=== PATIENT | female | born 1955 | race Caucasian/White ===

== ENCOUNTER 2019-05-11 14:34 | Emergency (ER) | payer MEDICARE, MEDICAID ==
[~2019-05-11] VITALS: Ht 160 cm; Wt 65.9 kg
[2019-05-11] MEDS ORDERED: PANT40TA3 (14:56)
[2019-05-11] MEDS ORDERED: AMIT150T (14:56)
[2019-05-11] MEDS ORDERED: POTA20TA15 (14:56)
[2019-05-11] MEDS ORDERED: ARIP15TA9 (14:56)
[2019-05-11] MEDS ORDERED: LEVO150T6 (14:56)
[2019-05-11] MEDS ORDERED: CARV12.53 (14:56)
[2019-05-11] MEDS ORDERED: FLUT1DIS26 (14:56)
[2019-05-11] MEDS ORDERED: CITA20TA9 (14:56)
[2019-05-11] MEDS ORDERED: PHEN100C11 (14:56)
[2019-05-11] MEDS ORDERED: IBUP-1780 (14:56)
[2019-05-11] MEDS ORDERED: BUSP15TA60 (14:56)
[2019-05-11] MEDS ORDERED: cefTRIAXone 500 MG/1.43 ML vial (IM ONLY) IM ONE (15:00)
[2019-05-11] MEDS ORDERED: TETANUS & DIPHTHERIA TOX,ADULT 0.5 ML (TENIVAC) IM ONE (15:00)
[2019-05-11] MEDS ORDERED: PENI500T PO (15:01)
--- NOTE | 2019-05-11 15:01 | ED Integumentary General ---
General Chief Complaint: Skin/Wound Problems Stated Complaint: SCRATCHED BY CAT - LT HAND SWOLLEN History of Present Illness Date Seen by Provider: May 11, 2019 Time Seen by Provider: 14:56 Initial Comments 64-year-old female she apparently has several cats all of which have been healthy and have been immunized 2 days ago she was doing something with one of them, and it sort of lashed out at her she's not sure if it's a scratch or bite she has a couple kasper on her dorsal left hand and wrist the next day she developed redness and swelling and now has more significant redness and swelling perhaps longterm up the dorsal left forearm nothing above the elbow no fever chills no nausea vomiting Allergies and Home Medications Allergies Coded Allergies: No Known Drug Allergies (Unverified , 05/11/19) Patient Home Medication List Home Medication List Reviewed: Yes Review of Systems Review of Systems Constitutional: no symptoms reported EENTM: no symptoms reported Respiratory: no symptoms reported Cardiovascular: no symptoms reported Gastrointestinal: no symptoms reported Physical Exam Vital Signs Capillary Refill : General Appearance: WD/WN HEENT: PERRL/EOMI Neck: supple Cardiovascular: regular rate, rhythm Respiratory: normal breath sounds Gastrointestinal: normal bowel sounds (left hand wrist and forearm are as described in history of present illness goes about longterm up the dorsal forearm she does not seem toxic nothing above the elbow) Progress/Results/Core Measures Results/Orders My Orders Orders - MARISA LEONG MD Ceftriaxone For Im Use (Rocephin For Im (05/11/19 15:00) Tetanus/Diphtheria Inj (Adult) (Tenivac (05/11/19 15:00) Departure Impression Primary Impression: Cellulitis Qualified Codes: L03.114 - Cellulitis of left upper limb Disposition: 01 HOME, SELF-CARE Condition: Stable Departure-Patient Inst. Referrals: SELFLOUIS MD (PCP/Family) Primary Care Physician Patient Instructions: Cellulitis (Skin Infection), Adult (DC) Scripts Penicillin V Potassium (Penicillin V Potassium) 500 Mg Tablet 500 MG PO QID, #28 TAB Prov: MARISA LEONG MD 05/11/19 MARISA LEONG MD May 11, 2019 15:01 POS
[2019-05-11] MEDS ORDERED: LIDOCAINE PF 1% 5 ML (XYLOCAINE) AMP ONE (15:04)
[2019-05-11] MEDS ORDERED: cefTRIAXone 1,000 MG/2.86 ml vial (IM ONLY) ONE (15:15)
[2019-05-11] MEDS ORDERED: LIDOCAINE 1% INJ 20 ML 20 ML VIAL INJ ONE (15:15)
[2019-05-11 15:31] VITALS: BP 128/72
[2019-05-12] MEDS ORDERED: cefTRIAXone 1,000 MG/2.86 ml vial (IM ONLY) IM SCH (09:00)
== END 2019-05-11 15:31 | disposition home or self-care (01) ==
LOC: EDUNIT# 14:34 → ER FS 14:35
DX: L03.114 Cellulitis of left upper limb (principal)
CPT/HCPCS: 90714; 99284

== ENCOUNTER → 2020-05-21 | Outpatient (CLI) | payer MEDICARE, MEDICAID ==
[~2020-05-21] MED LIST: AMIT150T; ARIP15TA9; BUSP15TA60; CARV12.53; CITA20TA9; FLUT1DIS26; IBUP-1780; LEVO150T6; PANT40TA52; PENI500T PO; PHEN100C11; POTA20TA15
--- NOTE | 2020-05-21 11:04 | Diagnostic Imaging Report ---
Indication: Left knee pain. Time of exam 10:40 AM 3 views left knee were obtained. There is medial and patellofemoral compartment degenerative change with joint space narrowing and marginal spurring. No fracture, dislocation or effusion is seen. There are sclerotic foci within the distal femur, most suggestive of bone infarcts. IMPRESSION: Chronic and degenerative changes. No acute bony abnormality is detected. Dictated by: Dictated on workstation # [id number]
== END ==
LOC: RAD FS 10:26
PROVIDERS: ATTEND Nurse Practitioner
DX: M17.12 Unilateral primary osteoarthritis, left knee (principal)
CPT/HCPCS: 73562

== ENCOUNTER → 2020-10-30 | Outpatient (CLI) | payer MEDICAID, MEDICARE | LOC: LAB FS 10:58 | PROVIDERS: ATTEND Orthopaedic Surgery | DX: Z01.812 Encounter for preprocedural laboratory examination (principal); Z20.822 Contact with and (suspected) exposure to COVID-19 | CPT/HCPCS: 87635 ==

== ENCOUNTER 2021-03-22 14:41 | Emergency (ER) | payer MEDICARE, MEDICAID ==
[~2021-03-22] VITALS: Ht 160 cm; Wt 64.4 kg
--- NOTE | 2021-03-22 14:49 | ED Lower Extremity ---
General Stated Complaint: LT HIP INJ Source: patient Exam Limitations: no limitations History of Present Illness Date Seen by Provider: Mar 22, 2021 Time Seen by Provider: 14:49 Initial Comments 66-year-old female presented to the outpatient clinic for x-rays of her left hip, ordered by her PCP today. She was seen with left hip pain since 12 March after a fall at home. She has been minimally mobile since then due to the pain and has been using a walker and primarily only moving from her bedroom to the bathroom at the most. Pain is moderate, but tolerable. 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 and has a foot drop since then and wears a brace on her left lower leg Allergies and Home Medications Allergies Coded Allergies: No Known Drug Allergies (Unverified , 05/11/19) Patient Home Medication List Home Medication List Reviewed: Yes Amitriptyline HCl (Amitriptyline HCl) 150 Mg Tablet, (Reported) Entered as Reported by: REGGIE CARLTON on 05/11/19 145 Aripiprazole (Aripiprazole) 15 Mg Tablet, (Reported) Entered as Reported by: REGGIE CARLTON on 05/11/19 1456 Buspirone HCl (Buspirone HCl) 15 Mg Tablet, (Reported) Entered as Reported by: REGGIE CARLTON on 05/11/19 1456 Carvedilol (Carvedilol) 12.5 Mg Tablet, (Reported) Entered as Reported by: REGGIE CARLTON on 05/11/19 1456 Citalopram Hydrobromide (Citalopram HBr) 20 Mg Tablet, (Reported) Entered as Reported by: REGGIE CARLTON on 05/11/19 1456 Fluticasone/Salmeterol (Advair 250-50 Diskus) 1 Each Blst.w.dev, (Reported) Entered as Reported by: REGGIE CARLTON on 05/11/19 145 Ibuprofen (Ibuprofen) 800 Mg Tablet, (Reported) Entered as Reported by: REGGIE CARLTON on 05/11/19 145 Levothyroxine Sodium (Levothyroxine Sodium) 150 Mcg Tablet, (Reported) Entered as Reported by: REGGIE CARLTON on 05/11/19 145 Pantoprazole Sodium (Pantoprazole Sodium) 40 Mg Tablet., (Reported) Entered as Reported by: REGGIE CARLTON on 05/11/19 1456 Penicillin V Potassium (Penicillin V Potassium) 500 Mg Tablet, 500 MG PO QID Prescribed by: MARISA LEONG on 05/11/19 1501 Phenytoin Sodium Extended (Phenytoin Sodium Extended) 100 Mg Capsule, (Reported) Entered as Reported by: REGGIE CARLTON on 05/11/19 1456 Potassium Chloride (Potassium Chloride) 20 Meq Tab.er.prt, (Reported) Entered as Reported by: REGGIE CARLTON on 05/11/19 1456 Review of Systems Constitutional: No fever, No malaise, No weakness Respiratory: No cough, No short of breath Cardiovascular: No chest pain, No edema, No palpitations Gastrointestinal: No abdominal pain, No vomiting Musculoskeletal: see HPI; No back pain; joint pain (left hip); No neck pain Skin: No change in color, No rash Past Vehxafg-Ahyyyp-Yjquwd Hx Patient Social History Tobacco Use?: No Immunizations Up To Date Tetanus Booster (TDap): Unknown Seasonal Allergies Seasonal Allergies: No Past Medical History Surgeries: Yes (L shoulder, colonoscopy) Gallbladder, Orthopedic Respiratory: No Cardiac: Yes Hypertension Neurological: Yes Seizure Disorder Genitourinary: No Gastrointestinal: Yes (Hepatitis C) Gastroesophageal Reflux, Hepatitis Musculoskeletal: Yes Endocrine: Yes Hypothyroidsim HEENT: No Cancer: No Psychosocial: Yes Anxiety, Bipolar Integumentary: Yes (red, hot swollen skin left hand (injured Thur)) Recent Skin Changes Blood Disorders: No Physical Exam Vital Signs Vital Signs - First Documented 03/22/21 14:48 Temp 36.0 Pulse 92 Resp 20 B/P (MAP) 146/76 (99) Pulse Ox 97 O2 Delivery Room Air Capillary Refill : Height, Weight, BMI Height: '" Weight: lbs. oz. kg; 25.00 BMI Method: General Appearance: WD/WN, no apparent distress Cardiovascular: regular rate, rhythm, no edema, no JVD Respiratory: chest non-tender, lungs clear, normal breath sounds, no respiratory distress Gastrointestinal: normal bowel sounds, non tender, soft Back: normal inspection, no CVA tenderness, no vertebral tenderness Hips: right hip non-tender, right hip normal inspection, right hip normal range of motion, right hip no evidence of injury; left hip bone tenderness, left hip limited range of motion, left hip pain, left hip soft tissue tenderness Legs: bilateral leg non-tender, bilateral leg normal inspection, bilateral leg normal range of motion, bilateral leg no evidence of injury Knees: bilateral knee non-tender, bilateral knee normal inspection, bilateral knee normal range of motion, bilateral knee no evidence of injury Ankles: bilateral ankle non-tender, bilateral ankle normal inspection, bilateral ankle normal range of motion, bilateral ankle no evidence of injury Feet: bilateral foot non-tender, bilateral foot normal inspection, bilateral foot normal range of motion, bilateral foot no evidence of injury Neurologic/Tendon: normal sensation, normal motor functions Neurologic/Psychiatric: no motor/sensory deficits, alert, normal mood/affect, oriented x 3 Skin: normal color, warm/dry Progress/Results/Core Measures Results/Orders My Orders Orders - LUKE HIGUERA DO Fentanyl Inj (Sublimaze Injection) (03/22/21 15:30) Ed Iv/Invasive Line Start (03/22/21 15:45) Cbc With Automated Diff (03/22/21 15:45) Comprehensive Metabolic Panel (03/22/21 15:45) Medications Given in ED Current Medications Medications Dose Ordered Sig/Geoffrey Route Start Time Stop Time Status Last Admin Dose Admin Fentanyl Citrate 50 mcg ONCE ONCE IVP 03/22/21 15:30 03/22/21 15:31 DC 03/22/21 15:28 50 MCG Vital Signs/I&O 03/22/21 14:48 Temp 36.0 Pulse 92 Resp 20 B/P (MAP) 146/76 (99) Pulse Ox 97 O2 Delivery Room Air Departure Impression Primary Impression: Hip fracture, left Qualified Codes: S72.002A - Fracture of unspecified part of neck of left femur, initial encounter for closed fracture Disposition: XFER SHT-TRM HOSP Condition: Stable Transfer Transfer Reason: Diversion (Dr Wilson diverted) Time Spoke to Accepting Phy: 15:49 Transfer Progress Notes Called [facility], spoke to Ortho, Dr Muñoz @[id number] who will see in consultation. Dr Cerda accepts for ER to ER transfer @[id number] Departure-Patient Inst. Referrals: SELF,LOUIS RENNER (PCP/Family) Primary Care Physician LUKE HIGUERA DO Mar 22, 2021 14:49
[2021-03-22] MEDS ORDERED: fentaNYL INJ 100 MCG/2 ML AMP IVP ONE ×2 (15:30→17:00)
[2021-03-22 17:06] VITALS: BP 126/98
== END 2021-03-22 17:08 | disposition short-term general hospital (02) ==
LOC: EDUNIT# 14:41 → ER FS 14:43
DX: S72.002A Fracture of unspecified part of neck of left femur, initial encounter for closed fracture (principal); I10 Essential (primary) hypertension; E03.9 Hypothyroidism, unspecified; F41.9 Anxiety disorder, unspecified; F31.9 Bipolar disorder, unspecified; K21.9 Gastro-esophageal reflux disease without esophagitis; G40.909 Epilepsy, unspecified, not intractable, without status epilepticus; Z79.890 Hormone replacement therapy; Z79.899 Other long term (current) drug therapy; W19.XXXA Unspecified fall, initial encounter; Y92.009 Unspecified place in unspecified non-institutional (private) residence as the place of occurrence of the external cause
CPT/HCPCS: 96374; 96376

== ENCOUNTER → 2021-03-22 | Outpatient (CLI) | payer MEDICAID ==
[~2021-03-22] MED LIST changes: +ARIP15TA20; -ARIP15TA9
--- NOTE | 2021-03-22 16:07 | Diagnostic Imaging Report ---
INDICATION: Fracture. TECHNIQUE: Two views were obtained. FINDINGS: There is a moderately displaced subcapital fracture of the left hip. The pelvis is intact. The soft tissues are grossly unremarkable. IMPRESSION: Moderately displaced subcapital fracture of the left femur. Dictated by: Dictated on workstation # [id number]
== END ==
LOC: RAD FS 14:06
PROVIDERS: ATTEND Family Medicine
DX: S72.012A Unspecified intracapsular fracture of left femur, initial encounter for closed fracture (principal); X58.XXXA Exposure to other specified factors, initial encounter
CPT/HCPCS: 73502